=== PATIENT | male | born 1940 | race Caucasian/White ===

== ENCOUNTER 2021-04-02 12:13 | Inpatient (IN) | payer MEDICARE, BC ==
[~2021-04-02] VITALS: Ht 170.2 cm; Wt 92.3 kg
--- NOTE | 2021-04-02 12:13 | NUR ---
TRANSFER FROM [place] C/O SOB, HYPOXIA (+COVID X14 DAYS) & CVA S/S (NEURO CONSULT); LAST KNOWN WELL ~0900 TODAY WITH MILD LT HAND WEAKNESS BUT NO DRIFT- NO OTHER NEURO S/S, VSS WITH SUPPL O2 IN PLACE, NAD, CHANGED INTO GOWN, MONITORS IN PLACE, RESPONDS APPROP TO STAFF WITHOUT SOB, COMFORT MEASURES PROVIDED, CALL LIGHT WITHIN REACH.
[2021-04-02] MEDS ORDERED: DILT300C44 PO (12:39)
[2021-04-02] MEDS ORDERED: TRAM50TA2 PO (12:39)
[2021-04-02] MEDS ORDERED: ASPI-963 PO (12:39)
[2021-04-02] MEDS ORDERED: ERGO500017 PO (12:39)
[2021-04-02] MEDS ORDERED: LISI5TAB7 PO (12:39)
[2021-04-02] MEDS ORDERED: CLON0.1T22 PO (12:39)
[2021-04-02] MEDS ORDERED: IBUP-1223 PO (12:39)
[2021-04-02] MEDS ORDERED: DILT120C83 PO (12:39)
--- NOTE | 2021-04-02 13:02 | NUR ---
PT UPRIGHT ON GURNEY AWAKE & COMFORTABLE, RESPONDS APPROP TO STAFF, NAD WITH SUPPL O2 IN PLACE, NO NEEDS AT THIS TIME, CALL LIGHT WITHIN REACH, AWAITING CT.
[2021-04-02] MEDS ORDERED: SODIUM CHLORIDE FLUSH 10ML SYR IVF ONE ×2 (13:30→15:00)
--- NOTE | 2021-04-02 13:45 | NUR ---
[facility]- [facility] [phone]
--- NOTE | 2021-04-02 14:01 | NUR ---
PT RETURNED FROM CT, UPRIGHT ON GURNEY AWAKE & COMFORTABLE, WATCHING TV, RESPONDS APPROP TO STAFF, NAD WITH SUPPL O2 IN PLACE, NO NEEDS AT THIS TIME, CALL LIGHT WITHIN REACH, PT VERBALIZED OK TO UPDATE NEEDED.
[2021-04-02 14:04] LABS: BASOPHILS % (AUTO) 1 % (0-1); EOSINOPHILS % (AUTO) 0 % (1-7); LYMPHOCYTES % (AUTO) 4 % (22-44); MEAN CORPUSCULAR HEMOGLOBIN 30.5 pg (27.5-34.5); MEAN CORPUSCULAR HGB CONC 33.7 g/dL (33.2-36.2); MEAN PLATELET VOLUME 7.6 fL (7.4-10.4); MONOCYTES % (AUTO) 4 % (2-9); NEUTROPHILS % (AUTO) 92 % (42-75); PLATELET COUNT 412 x10^3/uL (130-400); RED BLOOD COUNT 4.63 x10^6/uL (4.38-5.82); RED CELL DISTRIBUTION WIDTH 13.4 % (9.4-14.8)
[2021-04-02 14:08] LABS: ANION GAP 5 mmol/L (5-15); CALCIUM 9.6 mg/dL (8.5-10.1); CHLORIDE 110 mmol/L (98-107); CREATININE 0.88 mg/dL (0.7-1.3)
[2021-04-02 14:43] LABS: INTERNATIONAL NORMALIZED RATIO 1.07 (0.93-1.1); PROTHROMBIN TIME 11.4 Seconds (9.6-11.5)
[2021-04-02] MEDS ORDERED: SODIUM CHLORIDE 0.9% 1,000ML IVBOLUS ONE (15:00)
--- NOTE | 2021-04-02 15:05 | NUR ---
PT REMAINS UPRIGHT ON GURNEY AWAKE & COMFORTABLE, WATCHING TV, RESPONDS APPROP TO STAFF, NAD WITH SUPPL O2 IN PLACE, COMFORT MEASURES PROVIDED, CALL LIGHT WITHIN REACH.
[2021-04-02] MEDS ORDERED: ASPIRIN 325 MG TABLET PO ONE (16:20)
--- NOTE | 2021-04-02 16:39 | NUR ---
TASK RN: PT UP TO BSC WITH SBA.
--- NOTE | 2021-04-02 16:49 | NUR ---
PT HAD VERY SMALL BROWN SOFT FORMED BM. [facility] AT BEDSIDE TO EVAL PT
--- NOTE | 2021-04-02 17:00 | NUR ---
PT UPRIGHT ON GURNEY AWAKE & COMFORTABLE, WATCHING TV, RESPONDS APPROP TO STAFF, NAD WITH SUPPL O2 IN PLACE, NO NEEDS AT THIS TIME, CALL LIGHT WITHIN REACH.
[2021-04-02] MEDS ORDERED: ENOXAPARIN 40 MG/0.4 ML ONE (17:26)
[2021-04-02] MEDS ORDERED: ASPIRIN 325 MG TABLET ONE (17:26)
[2021-04-02] MEDS ORDERED: TRAZODONE 50MG TABLET PO PRN (17:30)
[2021-04-02] MEDS ORDERED: DOCUSATE 100 MG CAPSULE PO PRN (17:30)
[2021-04-02] MEDS ORDERED: HYDROcodone/APAP 5/325 TABLET PO PRN (17:30)
[2021-04-02] MEDS ORDERED: LABETALOL 5MG/ML, 20ML IVPush PRN (17:30)
[2021-04-02] MEDS ORDERED: BISACODYL 10 MG SUPP PR PRN (17:30)
[2021-04-02] MEDS ORDERED: IBUPROFEN 600 MG TABLET PO PRN (17:30)
[2021-04-02] MEDS ORDERED: hydrALAzine 20 MG/ML, 1ML IVPush PRN (17:30)
[2021-04-02] MEDS ORDERED: PROCHLORPERAZINE 5 MG/ML, 2ML IVPush PRN (17:30)
[2021-04-02] MEDS ORDERED: morphine SULFATE 10 MG/ML, 1ML IVPush PRN (17:30)
[2021-04-02] MEDS ORDERED: ONDANSETRON 2MG/ML, 2ML IVPush PRN (17:30)
[2021-04-02] MEDS ORDERED: GUAIFENESIN/DM 200-20MG, 10ML UDC PO PRN (17:30)
[2021-04-02] MEDS ORDERED: PHARMACY MAY ADJ FOR RENAL FX MC PRN (17:30)
[2021-04-02] MEDS ORDERED: POLYETHYLENE GLYCOL 17 GM PACKET PO PRN (17:30)
[2021-04-02] MEDS ORDERED: PROMETHAZINE 25 MG/ML, 1ML IM PRN (17:30)
[2021-04-02] MEDS ORDERED: ACETAMINOPHEN 325 MG TABLET PO PRN (17:30)
[2021-04-02] MEDS ORDERED: ENALAPRILAT 1.25 MG/ML, 2ML IVPush PRN (17:30)
[2021-04-02] MEDS: ENOXAPARIN 40 MG/0.4 ML SQ SCH ×2 (17:30→17:49)
[2021-04-02] MEDS: CEFTRIAXONE 1,000 MG in DEXTROSE 5% 50 ML IVPB SCH (17:50)
--- NOTE | 2021-04-02 17:55 | NUR ---
TEENA HELD D/T PREVIOUSLY ADMIN BY SENDING FACILITY COVER SEAMER TODAY
--- NOTE | 2021-04-02 18:03 | NUR ---
PT REMAINS UPRIGHT ON GURNEY AWAKE & COMFORTABLE, WATCHING TV, RESPONDS APPROP TO STAFF, NAD WITH SUPPL O2 IN PLACE, MEAL TRAY GIVEN- NO OTHER NEEDS AT THIS TIME, CALL LIGHT WITHIN REACH.
[2021-04-02] MEDS ORDERED: REMDESIVIR 200 MG in SODIUM CHLORIDE 0.9% 250 ML IVPB ONE (18:30)
--- NOTE | 2021-04-02 19:53 | NUR ---
DR MALHOTRA AWARE OF MRI RESULTS.
--- NOTE | 2021-04-02 20:01 | NUR ---
Pt to be admitted to [facility], room 505. Report called to AWA.
[2021-04-02 22:17] VITALS: BP 171/98
[2021-04-02] MEDS: FAMOTIDINE 20 MG TABLET PO SCH (22:20)
[2021-04-02] MEDS: ASCORBIC ACID 500 MG TABLET PO SCH (22:20)
[2021-04-02 22:28] VITALS: BP 171/98
[2021-04-03 01:20] VITALS: BP 175/93
[2021-04-03 06:19] LABS: BASOPHILS % (AUTO) 1 % (0-1); EOSINOPHILS % (AUTO) 0 % (1-7); LYMPHOCYTES % (AUTO) 3 % (22-44); MEAN CORPUSCULAR HEMOGLOBIN 29.8 pg (27.5-34.5); MEAN CORPUSCULAR HGB CONC 32.6 g/dL (33.2-36.2); MEAN PLATELET VOLUME 7.5 fL (7.4-10.4); MONOCYTES % (AUTO) 5 % (2-9); NEUTROPHILS % (AUTO) 91 % (42-75); PLATELET COUNT 500 x10^3/uL (130-400); RED BLOOD COUNT 4.83 x10^6/uL (4.38-5.82); RED CELL DISTRIBUTION WIDTH 13.7 % (9.4-14.8)
[2021-04-03 06:26] LABS: ALBUMIN 2.1 g/dL (3.4-5.0); ANION GAP 7 mmol/L (5-15); CALCIUM 9.6 mg/dL (8.5-10.1); CHLORIDE 112 mmol/L (98-107)
[2021-04-03 06:34] LABS: ALANINE AMINOTRANSFERASE 42 U/L (12-78); ALKALINE PHOSPHATASE 60 U/L (45-117); BILIRUBIN,TOTAL 0.3 mg/dL (0.2-1.0); CHOL/HDL RATIO 5.5; CHOLESTEROL, TOTAL 131 mg/dL (140-239); CREATININE 0.97 mg/dL (0.7-1.3); HDL CHOL % 18 % (26-37); HDL CHOLESTEROL (DIRECT) 24 mg/dL (40-60); LDL CHOLESTEROL,CALCULATED 86 mg/dL (54-169); LDL/HDL RATIO 3.6 (0.5-3.0); TOTAL PROTEIN 6.5 g/dL (6.4-8.2); TRIGLYCERIDES 103 mg/dL (50-200); VLDL CHOLESTEROL 21 mg/dL (0-25)
[2021-04-03 08:03] VITALS: BP 184/94
[2021-04-03] MEDS: ZINC SULFATE 220 MG CAPSULE PO SCH (08:05)
[2021-04-03] MEDS: AZITHROMYCIN 500 MG TABLET PO SCH (08:05)
[2021-04-03] MEDS: DILTIAZEM 120 MG CAP.ER.24H PO SCH (08:05)
[2021-04-03] MEDS: FAMOTIDINE 20 MG TABLET PO SCH ×2 (08:05→20:14)
[2021-04-03] MEDS: ASCORBIC ACID 500 MG TABLET PO SCH ×2 (08:05→20:14)
[2021-04-03] MEDS: DILTIAZEM 300 MG CAP.ER.24H PO SCH (08:05)
[2021-04-03] MEDS: LISINOPRIL 40 MG TABLET PO SCH (08:06)
[2021-04-03] MEDS ORDERED: DEXAMETHASONE 4 MG/ML, 1ML IVPush ONE (09:00)
[2021-04-03 10:12] VITALS: BP 152/96
[2021-04-03 12:07] VITALS: BP 156/83
[2021-04-03] MEDS: CEFTRIAXONE 1,000 MG in DEXTROSE 5% 50 ML IVPB SCH (17:53)
[2021-04-03 19:59] VITALS: BP 163/82
[2021-04-03] MEDS: ATORVASTATIN 40 MG TABLET PO SCH (20:14)
[2021-04-03] MEDS: REMDESIVIR 100 MG in SODIUM CHLORIDE 0.9% 250 ML IVPB SCH (20:15)
[2021-04-04 02:42] VITALS: BP 161/75
[2021-04-04 05:41] LABS: BASOPHILS % (AUTO) 0 % (0-1); EOSINOPHILS % (AUTO) 0 % (1-7); LYMPHOCYTES % (AUTO) 7 % (22-44); MEAN CORPUSCULAR HEMOGLOBIN 30.2 pg (27.5-34.5); MEAN PLATELET VOLUME 7.5 fL (7.4-10.4); MONOCYTES % (AUTO) 5 % (2-9); NEUTROPHILS % (AUTO) 88 % (42-75); PLATELET COUNT 597 x10^3/uL (130-400); RED BLOOD COUNT 5.09 x10^6/uL (4.38-5.82); RED CELL DISTRIBUTION WIDTH 14.3 % (9.4-14.8)
[2021-04-04 05:46] LABS: ANION GAP 6 mmol/L (5-15); CHLORIDE 111 mmol/L (98-107)
[2021-04-04 05:49] LABS: CREATININE 1.11 mg/dL (0.7-1.3)
[2021-04-04 08:40] VITALS: BP 172/103
[2021-04-04] MEDS: DILTIAZEM 300 MG CAP.ER.24H PO SCH (09:11)
[2021-04-04] MEDS: DILTIAZEM 120 MG CAP.ER.24H PO SCH (09:11)
[2021-04-04] MEDS: ZINC SULFATE 220 MG CAPSULE PO SCH (09:11)
[2021-04-04] MEDS: LISINOPRIL 40 MG TABLET PO SCH (09:11)
[2021-04-04] MEDS: ASCORBIC ACID 500 MG TABLET PO SCH ×2 (09:11→21:55)
[2021-04-04] MEDS: FAMOTIDINE 20 MG TABLET PO SCH ×2 (09:11→21:54)
[2021-04-04] MEDS: AZITHROMYCIN 500 MG TABLET PO SCH (09:11)
[2021-04-04 13:16] VITALS: BP 151/93
[2021-04-04] MEDS: RIVAROXABAN 20 MG TABLET PO SCH (16:30)
[2021-04-04] MEDS: CEFTRIAXONE 1,000 MG in DEXTROSE 5% 50 ML IVPB SCH (16:31)
[2021-04-04 21:31] VITALS: BP 161/91
[2021-04-04] MEDS: ATORVASTATIN 40 MG TABLET PO SCH (21:55)
[2021-04-04] MEDS: REMDESIVIR 100 MG in SODIUM CHLORIDE 0.9% 250 ML IVPB SCH (22:19)
[2021-04-05 02:15] VITALS: BP 165/96
[2021-04-05 05:44] LABS: BASOPHILS % (AUTO) 0 % (0-1); EOSINOPHILS % (AUTO) 0 % (1-7); LYMPHOCYTES % (AUTO) 9 % (22-44); MEAN CORPUSCULAR HEMOGLOBIN 29.9 pg (27.5-34.5); MEAN CORPUSCULAR HGB CONC 32.7 g/dL (33.2-36.2); MEAN PLATELET VOLUME 7.3 fL (7.4-10.4); MONOCYTES % (AUTO) 10 % (2-9); NEUTROPHILS % (AUTO) 81 % (42-75); PLATELET COUNT 489 x10^3/uL (130-400); RED BLOOD COUNT 4.77 x10^6/uL (4.38-5.82); RED CELL DISTRIBUTION WIDTH 14.2 % (9.4-14.8)
[2021-04-05 05:56] LABS: ALANINE AMINOTRANSFERASE 44 U/L (12-78); ANION GAP 6 mmol/L (5-15); CALCIUM 8.9 mg/dL (8.5-10.1); CHLORIDE 112 mmol/L (98-107); CREATININE 0.97 mg/dL (0.7-1.3)
[2021-04-05 05:58] LABS: ALKALINE PHOSPHATASE 47 U/L (45-117); BILIRUBIN,TOTAL 0.3 mg/dL (0.2-1.0); TOTAL PROTEIN 5.5 g/dL (6.4-8.2)
[2021-04-05] MEDS: ASCORBIC ACID 500 MG TABLET PO SCH (09:00)
[2021-04-05 09:06] VITALS: BP 158/92
[2021-04-05] MEDS ORDERED: ASCORBIC ACID 250 MG TAB ONE (09:22)
[2021-04-05] MEDS: DILTIAZEM 300 MG CAP.ER.24H PO SCH (09:39)
[2021-04-05] MEDS: FAMOTIDINE 20 MG TABLET PO SCH (09:39)
[2021-04-05] MEDS: DILTIAZEM 120 MG CAP.ER.24H PO SCH (09:39)
[2021-04-05] MEDS: ZINC SULFATE 220 MG CAPSULE PO SCH (09:41)
[2021-04-05] MEDS: AZITHROMYCIN 500 MG TABLET PO SCH (09:41)
[2021-04-05] MEDS: LISINOPRIL 40 MG TABLET PO SCH (09:41)
[2021-04-05 14:09] VITALS: BP 145/74
[2021-04-05] MEDS ORDERED: RIVA20TA PO (14:39)
[2021-04-05] MEDS ORDERED: HYDR-3343 PO (14:39)
[2021-04-05] MEDS ORDERED: ATOR40TA78 PO (14:39)
[2021-04-05] MEDS ORDERED: AZIT500T10 PO (14:39)
[2021-04-05] MEDS ORDERED: CEFD300C37 PO (14:39)
[2021-04-05] MEDS: CEFTRIAXONE 1,000 MG in DEXTROSE 5% 50 ML IVPB SCH (17:30)
[2021-04-05] MEDS: RIVAROXABAN 20 MG TABLET PO SCH (17:49)
== END 2021-04-05 20:42 | disposition home or self-care (01) | DRG 64 ==
LOC: ED 16:16 → EDIP 16:20 → 5SO 21:34 → ICU 04-05 11:32
PROVIDERS: ADMIT Hospitalist; ATTEND Family Medicine
PROC: XW033E5 Introduction of Remdesivir Anti-infective into Peripheral Vein, Percutaneous Approach, New Technology Group 5 (ICD-10-PCS; principal; 2021-04-04)
DX: I63.9 Cerebral infarction, unspecified (principal); U07.1 COVID-19; J12.82 Pneumonia due to coronavirus disease 2019; J96.01 Acute respiratory failure with hypoxia; I48.20 Chronic atrial fibrillation, unspecified; G81.94 Hemiplegia, unspecified affecting left nondominant side; I10 Essential (primary) hypertension; I65.23 Occlusion and stenosis of bilateral carotid arteries; J32.9 Chronic sinusitis, unspecified; Z66 Do not resuscitate; Z79.01 Long term (current) use of anticoagulants; Z79.82 Long term (current) use of aspirin; Z79.899 Other long term (current) drug therapy; Z86.718 Personal history of other venous thrombosis and embolism; Z87.891 Personal history of nicotine dependence; Z89.021 Acquired absence of right finger(s)
CPT/HCPCS: 36415; 70450; 70551; 71045; 80048; 80053; 80061; 82040; 83036; 83735; 84443; 85025; 85610; 85730; 86592; 87040; 93005; 93306; 93880; 96374; 99285; G0378; J0696; J1100; J0360; J7030; J7050

== ENCOUNTER 2021-04-06 10:36 | Emergency (ER) | payer MEDICARE, BC ==
[~2021-04-06] VITALS: Ht 172.7 cm; Wt 92.1 kg
[~2021-04-06 10:36] MED LIST: ASPI-963 PO; ATOR40TA78 PO; AZIT500T10 PO; CEFD300C37 PO; CLON0.1T22 PO; DILT120C83 PO; DILT300C44 PO; ERGO500017 PO; HYDR-3343 PO; IBUP-1223 PO; LISI5TAB7 PO; RIVA20TA PO; TRAM50TA2 PO
--- NOTE | 2021-04-06 10:46 | NUR ---
TASK RN: HERE FOR COVID PNA RECENTLY. HERE FOR STROKE EVAL. PER NOTED TO HAVE SX START AT 0900 TODAY W/ L WEAKNESS, FACIAL DROOP, DIFFICULTY TALKING. EYES GAZING IN ROOM. PT DC'D FROM [facility] LAST NIGHT STRAW BOSS BA 195, 89% RA PLACED ON 4L NC SATING 92-93%, BP 152/98, HR 76. 2ND PIV INITIATED. ERP DR. DARLING AT BEDSIDE FOR EVAL. CHIDI, PRIMARY RN AT BEDSIDE ASSESSING PT.
--- NOTE | 2021-04-06 10:52 | NUR ---
TASK RN: PT TO CT SCAN AT 105
[2021-04-06 10:58] LABS: BASOPHILS % (AUTO) 1 % (0-1); EOSINOPHILS % (AUTO) 2 % (1-7); LYMPHOCYTES % (AUTO) 11 % (22-44); MEAN CORPUSCULAR HEMOGLOBIN 30.7 pg (27.5-34.5); MEAN CORPUSCULAR HGB CONC 33.6 g/dL (33.2-36.2); MEAN PLATELET VOLUME 7.1 fL (7.4-10.4); MONOCYTES % (AUTO) 10 % (2-9); NEUTROPHILS % (AUTO) 77 % (42-75); PLATELET COUNT 493 x10^3/uL (130-400); RED BLOOD COUNT 5.13 x10^6/uL (4.38-5.82); RED CELL DISTRIBUTION WIDTH 13.9 % (9.4-14.8)
--- NOTE | 2021-04-06 11:07 | NUR ---
PT RETURN TO ROOM FROM CT. PLACED ON MONITORING EQUIPMENT. EKG IN PROCESS
--- NOTE | 2021-04-06 11:09 | NUR ---
DR SOTO AT BEDSIDE TO EVAL PT
[2021-04-06 11:12] LABS: INTERNATIONAL NORMALIZED RATIO 1.4 (0.93-1.1); PROTHROMBIN TIME 14.7 Seconds (9.6-11.5)
[2021-04-06] MEDS: ALTEPLASE 8 MG in SYRINGE 1 EA IVPush STA ×2 (11:21→11:45)
[2021-04-06] MEDS: ALTEPLASE IV STA ×2 (11:21→11:45)
--- NOTE | 2021-04-06 11:22 | NUR ---
DR DARLING AT BEDSIDE TO RE-EVAL PT AND DISCUSS TPA ADMINISTRATION.
[2021-04-06] MEDS ORDERED: ALTEPLASE 8 MG in SYRINGE 1 EA IVPush ONE (11:30)
[2021-04-06] MEDS ORDERED: OMNIPAQUE 350 MG/ML, 100ML BOTTLE ONE (11:30)
[2021-04-06] MEDS ORDERED: ALTEPLASE IV ONE (11:30)
--- NOTE | 2021-04-06 11:35 | NUR ---
TASK RN NOTE: PIV PLACED TO LEFT UPPER ARM, FLUSHES EASILY WITH GOOD BLOOD RETURN. THIS RN SPOKE WITH MELINA DARLING TO INQUIRE IF MILTON CATHETER INSERTION IS NEEDED PRIOR TO START OF TPA, PER MD DARLING, THIS MILTON CATH IS NOT INDICATED. PRIMARY RN CHIDI APPRISED OF THIS DISCUSSION.
--- NOTE | 2021-04-06 12:01 | NUR ---
VERIFIED WASTE OF 17MG WITH MELLISSA Smith RN FROM TELE 2. VERIFIED BOLUS OF 8 MG GIVEN AT 1121 OVER 1MIN AND INFUSION OF 75 MG OVER 1 HR STARTED AT 1145. PT CONT WITH HEAD TURNED TO THE LEFT. GALDAMEZ, VERY WEAK LEFT HAND CATERING ATTENDANT. SLURRED SPEECH. HOB UP. AFIB PER MONITOR.
[2021-04-06 12:31] VITALS: BP 149/84
[2021-04-06] MEDS ORDERED: ERGOCALCIFEROL 50,000 UNIT CAPSULE PO SCH (13:00)
[2021-04-06] MEDS ORDERED: ACETAMINOPHEN 325 MG TABLET PO PRN (13:00)
[2021-04-06] MEDS ORDERED: ENALAPRILAT 1.25 MG/ML, 2ML IVPush PRN (13:00)
[2021-04-06] MEDS ORDERED: SODIUM CHLORIDE 0.9% 1,000 ML IV SCH (13:00)
[2021-04-06] MEDS ORDERED: ONDANSETRON 2MG/ML, 2ML IVPush PRN (13:00)
[2021-04-06] MEDS ORDERED: AZITHROMYCIN 500 MG in SODIUM CHLORIDE 0.9% 250 ML IV SCH (13:00)
[2021-04-06] MEDS ORDERED: CEFTRIAXONE 2 GM in DEXTROSE 5% 50 ML IVPB SCH (13:00)
[2021-04-06] MEDS ORDERED: POLYETHYLENE GLYCOL 17 GM PACKET PO PRN (13:00)
[2021-04-06] MEDS ORDERED: LORazepam 2 MG/ML, 1ML IVPush PRN (13:00)
[2021-04-06] MEDS ORDERED: BISACODYL 10 MG SUPP PR PRN (13:00)
[2021-04-06] MEDS ORDERED: OXYcodone IR 5MG TABLET PO PRN (13:00)
--- NOTE | 2021-04-06 13:14 | NUR ---
REPORT GIVEN TO GENEVA KELLOGG AT [facility]. EMS HERE TO TRANSPORT PT TO [facility].
[2021-04-06] MEDS ORDERED: ALTEPLASE 1 ML ONE (13:23)
[2021-04-07] MEDS ORDERED: SENNA/DOCUSATE TABLET PO SCH (09:00)
== END 2021-04-06 13:20 ==
LOC: ED 11:00
DX: I63.9 Cerebral infarction, unspecified (principal); I66.01 Occlusion and stenosis of right middle cerebral artery; I10 Essential (primary) hypertension
CPT/HCPCS: 36415; 37195; 70450; 70496; 70498; 80047; 85025; 85610; 85730; 93005; 99291; 99292; J2997; Q9967